=== PATIENT | female | born 1990 | race Two or more races ===

== ENCOUNTER 2018-11-04 14:15 | Inpatient (IN) | payer OTHER ==
[~2018-11-04] VITALS: Ht 160 cm; Wt 81.2 kg
[2018-11-10] MEDS ORDERED: PRENATAL FORMU1 EAC1 PO (06:52)
[2018-11-10] MEDS ORDERED: FERREX 150 FOR1 EAC1 PO (06:53)
[2018-11-10] MEDS ORDERED: DIALYVITE 800-1 EACH PO (06:54)
== END 2018-11-12 20:19 | disposition home or self-care (01) | DRG 807 ==
LOC: LDR 11-10 06:04 → OB/GYN 11-10 06:04
PROVIDERS: ADMIT Obstetrics & Gynecology
PROC: 10E0XZZ Delivery of Products of Conception, External Approach (ICD-10-PCS; principal; 2018-11-10)
PROC: 4A1HXCZ Monitoring of Products of Conception, Cardiac Rate, External Approach (ICD-10-PCS; 2018-11-10)
DX: O80 Encounter for full-term uncomplicated delivery (principal); Z37.0 Single live birth; Z3A.39 39 weeks gestation of pregnancy